=== PATIENT | male | born 1990 ===

== ENCOUNTER 2016-04-20 10:02 | Emergency (ER) | payer SELFPAY ==
[2016-04-20 10:15] VITALS: BP 155/108
--- NOTE | 2016-04-20 11:30 | Emergency Department Report ---
ED ENT HPI - General Chief complaint: Sore Throat Stated complaint: SEVERE THROAT AND EAR PAIN/BLOOD IN SPIT Time Seen by Provider: 04/20/16 11:08 Source: patient Mode of arrival: Ambulatory Limitations: No Limitations - History of Present Illness Initial comments: Sore throat, R ear pain x 3 days. No cough or fever. No difficulty with swallowing, just pain. MD complaint: sore throat -: Gradual, days(s) (3) Location: throat Severity: mild, moderate Quality: aching Consistency: constant Improves with: none Worsens with: none Associated Symptoms: pain with swallowing, sore throat. denies: fever, cough, toothache - Related Data Previous Rx's Medication Instructions Recorded Last Taken Type Amoxicillin [Amoxicillin TAB] 875 mg PO BID #20 tablet 04/20/16 Unknown Rx predniSONE [Deltasone] 40 mg PO QDAY #10 tab 04/20/16 Unknown Rx ED Dental HPI - General Chief complaint: Sore Throat Stated complaint: SEVERE THROAT AND EAR PAIN/BLOOD IN SPIT Time Seen by Provider: 04/20/16 11:08 Source: patient Mode of arrival: Ambulatory Limitations: No Limitations - Related Data Previous Rx's Medication Instructions Recorded Last Taken Type Amoxicillin [Amoxicillin TAB] 875 mg PO BID #20 tablet 04/20/16 Unknown Rx predniSONE [Deltasone] 40 mg PO QDAY #10 tab 04/20/16 Unknown Rx ED Review of Systems ROS: Stated complaint: SEVERE THROAT AND EAR PAIN/BLOOD IN SPIT Other details as noted in HPI Comment: All other systems reviewed and negative Constitutional: denies: chills, fever Eyes: denies: eye pain, eye discharge, vision change ENT: ear pain, throat pain Respiratory: denies: cough, shortness of breath, wheezing Cardiovascular: denies: chest pain, palpitations Endocrine: no symptoms reported Gastrointestinal: denies: abdominal pain, nausea, diarrhea Genitourinary: denies: urgency, dysuria Musculoskeletal: denies: back pain, joint swelling, arthralgia Skin: denies: rash, lesions Neurological: denies: headache, weakness, paresthesias Psychiatric: denies: anxiety, depression Hematological/Lymphatic: denies: easy bleeding, easy bruising ED Past Medical Hx - Past Medical History Previous Medical History?: No - Surgical History Past Surgical History?: No - Social History Smoking Status: Current Every Day Smoker Substance Use Type: None - Medications Home Medications: Home Medications Medication Instructions Recorded Confirmed Last Taken Type Amoxicillin [Amoxicillin TAB] 875 mg PO BID #20 tablet 04/20/16 Unknown Rx predniSONE [Deltasone] 40 mg PO QDAY #10 tab 04/20/16 Unknown Rx ED Physical Exam - General Limitations: No Limitations General appearance: alert, in no apparent distress - Head Head exam: Present: atraumatic, normocephalic - Eye Eye exam: Present: normal appearance, PERRL, EOMI - ENT ENT exam: Present: mucous membranes moist, TM's normal bilaterally, normal external ear exam, other (L tonsil 1+, R tonsil 2+ with exudate. Uvula is midline and there is no evidence of peritonsillar abscess at this time. No trismus) - Neck Neck exam: Present: normal inspection - Respiratory Respiratory exam: Present: normal lung sounds bilaterally. Absent: respiratory distress, wheezes - Cardiovascular Cardiovascular Exam: Present: regular rate, normal rhythm. Absent: systolic murmur, diastolic murmur, rubs, gallop - GI/Abdominal GI/Abdominal exam: Present: soft, normal bowel sounds - Rectal Rectal exam: Present: deferred - Extremities Exam Extremities exam: Present: normal inspection - Back Exam Back exam: Present: normal inspection - Neurological Exam Neurological exam: Present: alert, oriented X3 - Psychiatric Psychiatric exam: Present: normal affect, normal mood - Skin Skin exam: Present: warm, dry, intact, normal color. Absent: rash ED Course Vital Signs 04/20/16 10:11 Temperature 98.4 F Pulse Rate 71 Respiratory 20 Rate Blood Pressure 155/108 O2 Sat by Pulse 100 Oximetry - Reevaluation(s) Reevaluation #1: 04/20/16 11:27 NAD, stable for d/c. ED Medical Decision Making - Medical Decision Making Pt with exudative tonsillitis. No evidence of peritonsillar abscess at this time. Signs/symptoms that would necessitate further eval discussed. Follow with PCP in 2-3 days. - Differential Diagnosis tonsillitis, viral pharyngitis, peritonsillar abscess Critical care attestation.: If time is entered above; I have spent that time in minutes in the direct care of this critically ill patient, excluding procedure time. ED Disposition Clinical Impression: Tonsillitis with exudate Disposition: DISCHARGED TO HOME OR SELFCARE Is pt being admited?: No Condition: Stable Instructions: Tonsillitis (ED) Prescriptions: Amoxicillin [Amoxicillin TAB] 875 mg PO BID #20 tablet predniSONE [Deltasone] 40 mg PO QDAY #10 tab Referrals: ELIJAH DAVILA MD [Staff Physician] - 3-5 Days MARIO HINTON MD [Staff Physician] - 3-5 Days Time of Disposition: 11:30
== END 2016-04-20 11:51 | disposition home or self-care (01) ==
LOC: ED 10:02
DX: J03.90 Acute tonsillitis, unspecified (principal); F17.200 Nicotine dependence, unspecified, uncomplicated
CPT/HCPCS: 99282